=== PATIENT | female | born 1965 | race Caucasian/White ===

== ENCOUNTER 2020-11-20 20:30 | Inpatient (IN) ==
[2020-11-20] MEDS ORDERED: TERBUTALINE 1 MG/ML VIAL SQ ONE (21:27)
[2020-11-20] MEDS ORDERED: 0.9 % SODIUM CHLORIDE 1,000 ML IV ONE (21:27)
[2020-11-20] MEDS ORDERED: methylPREDNISolone SOD SUCC 125 MG/2 ML VIAL IV ONE (21:27)
[2020-11-20] MEDS ORDERED: ALBUTEROL SULFATE 200 PUFF INHALER INH ONE (21:27)
--- NOTE | 2020-11-20 21:36 | Emergency Department Note ---
Lower Extremity Injury HPI General Chief Complaint: Extremity Injury, Lower Stated Complaint: lt hip pain 2 days Time Seen by Provider: 11/20/20 20:56 Source: patient Mode of arrival: wheelchair Limitations: no limitations History of Present Illness HPI Narrative: Narrative: 54-year-old female comes in complaining of left hip pain after falling off a curb yesterday. She sort of tripped and fell. She has had a prior hip replacement at that side. She is able to walk but it does cause significant pain. She did not sleep well secondary to pain. She was having some trouble breathing last night and so she brought her roommates oxygen for a little bit. She does not normally use oxygen-here she is requiring 2 L to keep oxygen saturations above 90%. She denies fever and had a negative Covid test 1 week ago. She has been feeling rundown and more fatigue but denies bowel or bladder symptoms. She had some morphine leftover from prior surgery that she took but it did not seem to help much. She also took some gabapentin. She is quite somnolent here Related Data Home Medications Medication Instructions Recorded Confirmed gabapentin 600 mg PO PRN PRN 06/23/20 11/21/20 lorazepam 11/20/20 Allergies Allergy/AdvReac Type Severity Reaction Status Date / Time cephalexin [From Keflex] Allergy Verified 11/20/20 20:35 clindamycin Allergy Verified 11/20/20 20:35 Review of Systems ROS ROS Narrative: Narrative: All systems ED: reviewed and negative except as stated. PFSH Narrative Patient History Narrative: Narrative: Medical/Surgical/Family History All Active Problems (Updated 11/20/20 @ 21:37 by Erick Orozco MD) Fall (Acute) Hypoxia (Acute) Acute pain of left hip (Acute) Status post left hip replacement (Acute) COPD (chronic obstructive pulmonary disease) (Acute) No pertinent past surgical history (Acute) No pertinent past medical history (Acute) Acute flank pain (Acute) Foreign body in throat (Acute) Medical History (Updated 11/20/20 @ 21:37 by Erick Orozco MD) No pertinent past medical history (Acute) Schatzki's ring (Acute) Surgical History (Updated 11/20/20 @ 21:37 by Erick Orozco MD) Hip joint replacement status (Acute) History of esophagogastroduodenoscopy (EGD) (Acute) No pertinent past surgical history (Acute) Family History (Updated 08/23/20 @ 09:01 by Rashmi Patrick) Other No pertinent family history Social History Smoking Status: Current every day smoker Exam Narrative Narrative: Narrative: Some respiratory distress requiring oxygen. Normocephalic atraumatic. Conjunctive are clear sclerae white nonicteric. No nasal discharge or congestion. Oropharynx dry buccal mucosa. Neck supple.lymphadenopathy or thyromegaly. Heart is regular rate and rhythm no murmur appreciated. Lungs with few scattered rhonchi and scattered crackles. End expiratory wheezes noted. Left hip painful at the groin and buttock area. She is able to move it though. Both legs appear to be the same length and normal great toe raise bilaterally. Sensation is intact at the foot good color and tone to the leg. She is somnolent but arousable and can answer questions appropriate General Limitations: no limitations Course Vital Signs Vital signs: Vital Signs Temperature 100.6 F H 11/20/20 20:31 Pulse Rate 125 H 11/20/20 20:31 Respiratory Rate 20 11/20/20 20:31 Blood Pressure 124/74 11/20/20 20:31 Pulse Oximetry (%) 88 L 11/20/20 20:31 Temperature 100.6 F H 11/20/20 20:31 Pulse Rate 103 H 11/21/20 00:31 Respiratory Rate 12 11/21/20 00:31 Blood Pressure 117/72 11/21/20 00:31 Pulse Oximetry (%) 94 11/21/20 00:31 [facility] MDM Narrative Medical decision making narrative: Narrative: 2 issues-the first is she fell and injured her hip. I do not see an acute fracture on x-ray. The second issue is her breathing issue with hypoxia. She is febrile here and tachycardic. Suspect Covid as that is what is going around right now. Chest x-ray is consistent with that Order testing with laboratory. Start terbutaline and albuterol inhaler. Rapid Covid test. Start steroids for COPD and IV fluids Rapid Covid test was negative. Arterial blood gas showed pH is 7.42 PCO2 49 PO2 of 53 on 3 L. She will require admission because she is on oxygen now. We will go ahead and give her doxycycline for COPD exacerbation and order follow-up up cepheid COVID test in anticipation of admission Her white blood cell count was very high-23 with predominance of neutrophils which suggest bacterial infection. However procalcitonin was elevated but does not suggest bacterial infection. Lactic acid is normal as is D-dimer. So at this point it does not look like she is septic, but she could certainly have a Covid versus bacterial pneumonia plus COPD exacerbation. Additionally while her left leg is hurting her from the fall further imaging with CT or MRI might be warranted to sort out-but at this point it seems to be a secondary issue to her breathing. I discussed these things with Dr. Jane our hospitalist. He agreed to accept the patient for further care and evaluation in the hospital. I went in to briefly reevaluate the patient and noted that she is sleeping-but it is midnight. The head of the bed was up and she was snoring, it sounded like there are some gurgling and secretions in the back of her throat but her oxygen levels were good and she was moving air well on nasal cannula oxygen. Nursing staff ended up doing fem cath. They noted dark-colored urine could be consistent with dehydration versus UTI. This is sent for microscopic. She already received doxycycline which should cover UTI as well. Added UDS. She finished her first liter of fluid and we wrote for another liter of IV fluid. PCR testing for Covid was negative. Hospitalist ordered further testing. Nursing staff reports that after suctioning the patient was feeling much better; breathing better Lab Data Lab results reviewed: Yes I reviewed the patient's lab results. Result diagrams: 11/20/20 21:47 11/20/20 21:47 Labs: Lab Results 11/20/20 11/20/20 11/20/20 Range/Units 21:47 21:47 21:47 WBC 23.3 H (4.5-11.0) K/mcL RBC 4.51 (4.00-5.20) M/mcL Hgb 13.9 (12.0-15.0) g/dL Hct 41.1 (36.0-48.0) % MCV 91.1 (80.0-100.0) fL MCH 30.8 (26.0-34.0) pg MCHC 33.8 (31.0-36.0) g/dL RDW 13.9 (11.5-14.5) % Plt Count 188 (140-440) K/mcL MPV 8.9 (7.4-10.4) fL Neut % (Auto) 87.1 H (38.0-78.0) % Lymph % (Auto) 8.8 L (15.0-49.0) % Mesa % (Auto) 3.6 (1.0-12.0) % Eos % (Auto) 0.1 (0.0-7.0) % Baso % (Auto) 0.4 (0.0-2.0) % Lymph # (Auto) 2.04 (1.50-4.80) K/mcL Mesa # (Auto) 0.83 (0.10-0.90) K/mcL Eos # (Auto) 0.03 (0.00-0.70) K/mcL Baso # (Auto) 0.09 (0.00-0.20) K/mcL Absolute Neutrophils 20.26 H (1.80-8.00) K/mcL PT (11.9-14.5) sec INR (0.9-1.1) D-Dimer 0.43 (0.27-0.50) ug/mL VBG Lactic Acid (0.5-2.0) mmol/L Sodium 130 L (133-145) mmol/L Potassium 3.9 (3.3-5.1) mmol/L Chloride 92 L (96-108) mmol/L Carbon Dioxide 28 (22-30) mmol/L Anion Gap 10.0 (8.0-16.0) BUN 11 (6-20) mg/dL Creatinine 0.7 (0.6-1.1) mg/dL GFR Calculation 99 Glucose 151 H (70-105) mg/dL Calcium 9.2 (8.6-10.4) mg/dL Phosphorus (2.5-4.5) mg/dL Magnesium 2.2 (1.6-2.5) mg/dL Total Bilirubin 0.5 (0.1-1.0) mg/dL AST 19 (<32) U/L ALT 14 (<40) U/L Alkaline Phosphatase 124 H (39-117) U/L Troponin T (<0.03) ng/mL C-Reactive Protein (0.03-0.80) mg/dL NT-Pro-B Natriuret Pep 169.7 H (<125.0) pg/mL Total Protein 7.4 (5.9-8.4) gm/dL Albumin 3.7 (3.2-5.2) gm/dL Globulin 3.7 (2.2-3.7) gm/dL Albumin/Globulin Ratio 1.0 (1.0-2.3) Lipase 13 (7-60) U/L 25-OH Vitamin D Total (>30.00) ng/mL Procalcitonin (<0.10) ng/mL Urine Color Urine Appearance (Clear) Urine pH (5.0-9.0) Ur Specific Stephenson (1.000-1.035) Urine Protein (Negative) mg/dL Urine Glucose (UA) (Negative) mg/dL Urine Ketones (Negative) mg/dL Urine Occult Blood (Negative) mg/dL Urine Nitrate (Negative) Urine Bilirubin (Negative) mg/dL Urine Urobilinogen mg/dL Ur Leukocyte Esterase (Negative) /ug Urine RBC (0-3) /hpf Urine WBC (0-4) /hpf Ur Squamous Epith Cells (0-4) /hpf Urine Bacteria (0) /hpf Urine Mucus (None) /hpf Ur Culture Indicated? Urine Opiates Screen Ur Oxycodone Screen Urine Methadone Screen Ur Barbiturates Screen Ur Phencyclidine Scrn Ur Amphetamines Screen U Benzodiazepines Scrn Urine Cocaine Screen U Marijuana (THC) Screen 11/20/20 11/20/20 11/20/20 Range/Units 21:47 21:47 21:47 WBC (4.5-11.0) K/mcL RBC (4.00-5.20) M/mcL Hgb (12.0-15.0) g/dL Hct (36.0-48.0) % MCV (80.0-100.0) fL MCH (26.0-34.0) pg MCHC (31.0-36.0) g/dL RDW (11.5-14.5) % Plt Count (140-440) K/mcL MPV (7.4-10.4) fL Neut % (Auto) (38.0-78.0) % Lymph % (Auto) (15.0-49.0) % Mesa % (Auto) (1.0-12.0) % Eos % (Auto) (0.0-7.0) % Baso % (Auto) (0.0-2.0) % Lymph # (Auto) (1.50-4.80) K/mcL Mesa # (Auto) (0.10-0.90) K/mcL Eos # (Auto) (0.00-0.70) K/mcL Baso # (Auto) (0.00-0.20) K/mcL Absolute Neutrophils (1.80-8.00) K/mcL PT (11.9-14.5) sec INR (0.9-1.1) D-Dimer (0.27-0.50) ug/mL VBG Lactic Acid 1.4 (0.5-2.0) mmol/L Sodium (133-145) mmol/L Potassium (3.3-5.1) mmol/L Chloride (96-108) mmol/L Carbon Dioxide (22-30) mmol/L Anion Gap (8.0-16.0) BUN (6-20) mg/dL Creatinine (0.6-1.1) mg/dL GFR Calculation Glucose (70-105) mg/dL Calcium (8.6-10.4) mg/dL Phosphorus (2.5-4.5) mg/dL Magnesium (1.6-2.5) mg/dL Total Bilirubin (0.1-1.0) mg/dL AST (<32) U/L ALT (<40) U/L Alkaline Phosphatase (39-117) U/L Troponin T < 0.01 (<0.03) ng/mL C-Reactive Protein (0.03-0.80) mg/dL NT-Pro-B Natriuret Pep (<125.0) pg/mL Total Protein (5.9-8.4) gm/dL Albumin (3.2-5.2) gm/dL Globulin (2.2-3.7) gm/dL Albumin/Globulin Ratio (1.0-2.3) Lipase (7-60) U/L 25-OH Vitamin D Total (>30.00) ng/mL Procalcitonin 0.22 H (<0.10) ng/mL Urine Color Urine Appearance (Clear) Urine pH (5.0-9.0) Ur Specific Stephenson (1.000-1.035) Urine Protein (Negative) mg/dL Urine Glucose (UA) (Negative) mg/dL Urine Ketones (Negative) mg/dL Urine Occult Blood (Negative) mg/dL Urine Nitrate (Negative) Urine Bilirubin (Negative) mg/dL Urine Urobilinogen mg/dL Ur Leukocyte Esterase (Negative) /ug Urine RBC (0-3) /hpf Urine WBC (0-4) /hpf Ur Squamous Epith Cells (0-4) /hpf Urine Bacteria (0) /hpf Urine Mucus (None) /hpf Ur Culture Indicated? Urine Opiates Screen Ur Oxycodone Screen Urine Methadone Screen Ur Barbiturates Screen Ur Phencyclidine Scrn Ur Amphetamines Screen U Benzodiazepines Scrn Urine Cocaine Screen U Marijuana (THC) Screen 11/20/20 11/21/20 11/21/20 Range/Units 23:34 00:02 00:35 WBC (4.5-11.0) K/mcL RBC (4.00-5.20) M/mcL Hgb (12.0-15.0) g/dL Hct (36.0-48.0) % MCV (80.0-100.0) fL MCH (26.0-34.0) pg MCHC (31.0-36.0) g/dL RDW (11.5-14.5) % Plt Count (140-440) K/mcL MPV (7.4-10.4) fL Neut % (Auto) (38.0-78.0) % Lymph % (Auto) (15.0-49.0) % Mesa % (Auto) (1.0-12.0) % Eos % (Auto) (0.0-7.0) % Baso % (Auto) (0.0-2.0) % Lymph # (Auto) (1.50-4.80) K/mcL Mes[place] # (Auto) (0.10-0.90) K/mcL Eos # (Auto) (0.00-0.70) K/mcL Baso # (Auto) (0.00-0.20) K/mcL Absolute Neutrophils (1.80-8.00) K/mcL PT (11.9-14.5) sec INR (0.9-1.1) D-Dimer (0.27-0.50) ug/mL VBG Lactic Acid 0.8 (0.5-2.0) mmol/L Sodium (133-145) mmol/L Potassium (3.3-5.1) mmol/L Chloride (96-108) mmol/L Carbon Dioxide (22-30) mmol/L Anion Gap (8.0-16.0) BUN (6-20) mg/dL Creatinine (0.6-1.1) mg/dL GFR Calculation Glucose (70-105) mg/dL Calcium (8.6-10.4) mg/dL Phosphorus (2.5-4.5) mg/dL Magnesium (1.6-2.5) mg/dL Total Bilirubin (0.1-1.0) mg/dL AST (<32) U/L ALT (<40) U/L Alkaline Phosphatase (39-117) U/L Troponin T (<0.03) ng/mL C-Reactive Protein (0.03-0.80) mg/dL NT-Pro-B Natriuret Pep (<125.0) pg/mL Total Protein (5.9-8.4) gm/dL Albumin (3.2-5.2) gm/dL Globulin (2.2-3.7) gm/dL Albumin/Globulin Ratio (1.0-2.3) Lipase (7-60) U/L 25-OH Vitamin D Total (>30.00) ng/mL Procalcitonin (<0.10) ng/mL Urine Color Yellow Urine Appearance Cloudy A (Clear) Urine pH 5.0 (5.0-9.0) Ur Specific Stephenson 1.018 (1.000-1.035) Urine Protein 30 A (Negative) mg/dL Urine Glucose (UA) Negative (Negative) mg/dL Urine Ketones Negative (Negative) mg/dL Urine Occult Blood 0.20 (Negative) mg/dL Urine Nitrate Pos A (Negative) Urine Bilirubin Negative (Negative) mg/dL Urine Urobilinogen Negative mg/dL Ur Leukocyte Esterase 250 A (Negative) /ug Urine RBC 2 (0-3) /hpf Urine WBC > 182 H (0-4) /hpf Ur Squamous Epith Cells 1 (0-4) /hpf Urine Bacteria Mod A (0) /hpf Urine Mucus Many A (None) /hpf Ur Culture Indicated? yes Urine Opiates Screen Suspect positive A Ur Oxycodone Screen None detected Urine Methadone Screen None detected Ur Barbiturates Screen None detected Ur Phencyclidine Scrn None detected Ur Amphetamines Screen Suspect positive A U Benzodiazepines Scrn Suspect positive A Urine Cocaine Screen None detected U Marijuana (THC) Screen Suspect positive A 11/21/20 11/21/20 11/21/20 Range/Units 00:36 00:36 00:37 WBC (4.5-11.0) K/mcL RBC (4.00-5.20) M/mcL Hgb (12.0-15.0) g/dL Hct (36.0-48.0) % MCV (80.0-100.0) fL MCH (26.0-34.0) pg MCHC (31.0-36.0) g/dL RDW (11.5-14.5) % Plt Count (140-440) K/mcL MPV (7.4-10.4) fL Neut % (Auto) (38.0-78.0) % Lymph % (Auto) (15.0-49.0) % Mesa % (Auto) (1.0-12.0) % Eos % (Auto) (0.0-7.0) % Baso % (Auto) (0.0-2.0) % Lymph # (Auto) (1.50-4.80) K/mcL [place] # (Auto) (0.10-0.90) K/mcL Eos # (Auto) (0.00-0.70) K/mcL Baso # (Auto) (0.00-0.20) K/mcL Absolute Neutrophils (1.80-8.00) K/mcL PT 14.3 (11.9-14.5) sec INR 1.1 (0.9-1.1) D-Dimer (0.27-0.50) ug/mL VBG Lactic Acid (0.5-2.0) mmol/L Sodium (133-145) mmol/L Potassium (3.3-5.1) mmol/L Chloride (96-108) mmol/L Carbon Dioxide (22-30) mmol/L Anion Gap (8.0-16.0) BUN (6-20) mg/dL Creatinine (0.6-1.1) mg/dL GFR Calculation Glucose (70-105) mg/dL Calcium (8.6-10.4) mg/dL Phosphorus 2.6 (2.5-4.5) mg/dL Magnesium 2.0 (1.6-2.5) mg/dL Total Bilirubin (0.1-1.0) mg/dL AST (<32) U/L ALT (<40) U/L Alkaline Phosphatase (39-117) U/L Troponin T < 0.01 (<0.03) ng/mL C-Reactive Protein 11.60 H (0.03-0.80) mg/dL NT-Pro-B Natriuret Pep 197.2 H (<125.0) pg/mL Total Protein (5.9-8.4) gm/dL Albumin (3.2-5.2) gm/dL Globulin (2.2-3.7) gm/dL Albumin/Globulin Ratio (1.0-2.3) Lipase (7-60) U/L 25-OH Vitamin D Total (>30.00) ng/mL Procalcitonin (<0.10) ng/mL Urine Color Urine Appearance (Clear) Urine pH (5.0-9.0) Ur Specific Stephenson (1.000-1.035) Urine Protein (Negative) mg/dL Urine Glucose (UA) (Negative) mg/dL Urine Ketones (Negative) mg/dL Urine Occult Blood (Negative) mg/dL Urine Nitrate (Negative) Urine Bilirubin (Negative) mg/dL Urine Urobilinogen mg/dL Ur Leukocyte Esterase (Negative) /ug Urine RBC (0-3) /hpf Urine WBC (0-4) /hpf Ur Squamous Epith Cells (0-4) /hpf Urine Bacteria (0) /hpf Urine Mucus (None) /hpf Ur Culture Indicated? Urine Opiates Screen Ur Oxycodone Screen Urine Methadone Screen Ur Barbiturates Screen Ur Phencyclidine Scrn Ur Amphetamines Screen U Benzodiazepines Scrn Urine Cocaine Screen U Marijuana (THC) Screen 11/21/20 Range/Units 00:37 WBC (4.5-11.0) K/mcL RBC (4.00-5.20) M/mcL Hgb (12.0-15.0) g/dL Hct (36.0-48.0) % MCV (80.0-100.0) fL MCH (26.0-34.0) pg MCHC (31.0-36.0) g/dL RDW (11.5-14.5) % Plt Count (140-440) K/mcL MPV (7.4-10.4) fL Neut % (Auto) (38.0-78.0) % Lymph % (Auto) (15.0-49.0) % [place] % (Auto) (1.0-12.0) % Eos % (Auto) (0.0-7.0) % Baso % (Auto) (0.0-2.0) % Lymph # (Auto) (1.50-4.80) K/mcL [place] # (Auto) (0.10-0.90) K/mcL Eos # (Auto) (0.00-0.70) K/mcL Baso # (Auto) (0.00-0.20) K/mcL Absolute Neutrophils (1.80-8.00) K/mcL PT (11.9-14.5) sec INR (0.9-1.1) D-Dimer (0.27-0.50) ug/mL VBG Lactic Acid (0.5-2.0) mmol/L Sodium (133-145) mmol/L Potassium (3.3-5.1) mmol/L Chloride (96-108) mmol/L Carbon Dioxide (22-30) mmol/L Anion Gap (8.0-16.0) BUN (6-20) mg/dL Creatinine (0.6-1.1) mg/dL GFR Calculation Glucose (70-105) mg/dL Calcium (8.6-10.4) mg/dL Phosphorus (2.5-4.5) mg/dL Magnesium (1.6-2.5) mg/dL Total Bilirubin (0.1-1.0) mg/dL AST (<32) U/L ALT (<40) U/L Alkaline Phosphatase (39-117) U/L Troponin T (<0.03) ng/mL C-Reactive Protein (0.03-0.80) mg/dL NT-Pro-B Natriuret Pep (<125.0) pg/mL Total Protein (5.9-8.4) gm/dL Albumin (3.2-5.2) gm/dL Globulin (2.2-3.7) gm/dL Albumin/Globulin Ratio (1.0-2.3) Lipase (7-60) U/L 25-OH Vitamin D Total 12.91 L (>30.00) ng/mL Procalcitonin (<0.10) ng/mL Urine Color Urine Appearance (Clear) Urine pH (5.0-9.0) Ur Specific Stephenson (1.000-1.035) Urine Protein (Negative) mg/dL Urine Glucose (UA) (Negative) mg/dL Urine Ketones (Negative) mg/dL Urine Occult Blood (Negative) mg/dL Urine Nitrate (Negative) Urine Bilirubin (Negative) mg/dL Urine Urobilinogen mg/dL Ur Leukocyte Esterase (Negative) /ug Urine RBC (0-3) /hpf Urine WBC (0-4) /hpf Ur Squamous Epith Cells (0-4) /hpf Urine Bacteria (0) /hpf Urine Mucus (None) /hpf Ur Culture Indicated? Urine Opiates Screen Ur Oxycodone Screen Urine Methadone Screen Ur Barbiturates Screen Ur Phencyclidine Scrn Ur Amphetamines Screen U Benzodiazepines Scrn Urine Cocaine Screen U Marijuana (THC) Screen Radiology Data Radiology results reviewed: Yes I reviewed the patient's radiology results. Radiology results narrative: Left hip films and pelvis showed no acute findings Chest x-ray shows possible bilateral patchy infiltrate consistent with Covid or similar viral Discharge Plan Patient/Caregiver Discharge Instructions Pt seen by UTILIZATION MANAGEMENT MANAGER/PA only: No Clinical Impression: Hypoxia, Acute pain of left hip, Status post left hip replacement COPD (chronic obstructive pulmonary disease) Qualifiers: COPD type: unspecified COPD Qualified Code(s): J44.9 - Chronic obstructive pulmonary disease, unspecified Fall Qualifiers: Encounter type: initial encounter Qualified Code(s): W19.XXXA - Unspecified fall, initial encounter Patient Disposition: Xfer As Inpt ([facility]) Condition: Fair Discharge Date/Time: 11/21/20 01:45 [place]charge Comment: [place] [id number]
[2020-11-20] MEDS ORDERED: DOXYCYCLINE HYCLATE 100 MG TABLET.ORL PO ONE (22:30)
[2020-11-20 22:40] LABS: Basophils # (Auto) 0.09 K/mcL (0.00-0.20); Basophils % (Auto) 0.4 % (0.0-2.0); Eosinophils # (Auto) 0.03 K/mcL (0.00-0.70); Eosinophils % (Auto) 0.1 % (0.0-7.0); Hematocrit 41.1 % (36.0-48.0); Hemoglobin 13.9 g/dL (12.0-15.0); Lymphocytes # (Auto) 2.04 K/mcL (1.50-4.80); Lymphocytes % (Auto) 8.8 % (15.0-49.0); Mean Cell Volume 91.1 fL (80.0-100.0); Mean Corpuscular HGB Conc 33.8 g/dL (31.0-36.0); Mean Platelet Volume 8.9 fL (7.4-10.4); Monocytes # (Auto) 0.83 K/mcL (0.10-0.90); Monocytes % (Auto) 3.6 % (1.0-12.0); Neutrophils % (Auto) 87.1 % (38.0-78.0); Platelet Count 188 K/mcL (140-440); RBC 4.51 M/mcL (4.00-5.20); Red Cell Distribution Width 13.9 % (11.5-14.5); WBC 23.3 K/mcL (4.5-11.0)
[2020-11-20 23:06] LABS: proBNP 169.7 pg/mL (<125.0)
[2020-11-20 23:08] LABS: ALT/SGPT 14 U/L (<40); AST/SGOT 19 U/L (<32); Albumin 3.7 gm/dL (3.2-5.2); Alkaline Phosphatase 124 U/L (39-117); Bilirubin,Total 0.5 mg/dL (0.1-1.0); Blood Urea Nitrogen 11 mg/dL (6-20); Calcium 9.2 mg/dL (8.6-10.4); Carbon Dioxide 28 mmol/L (22-30); Chloride 92 mmol/L (96-108); Globulin 3.7 gm/dL (2.2-3.7); Glomerular Filtration Rate 99; Glucose 151 mg/dL (70-105)
[2020-11-21] MEDS ORDERED: 0.9 % SODIUM CHLORIDE 1,000 ML IV ONE (00:11)
[2020-11-21] MEDS ORDERED: ONDANSETRON 4 MG/2 ML VIAL IV PRN (00:13)
[2020-11-21] MEDS ORDERED: morphine 2 MG/ML VIAL IV PRN (00:13)
[2020-11-21] MEDS ORDERED: HYDROcodone/APAP 5/325MG TABLET PO PRN (00:13)
[2020-11-21] MEDS ORDERED: NALOXONE HCL 0.4 MG/ML VIAL IV PRN (00:13)
[2020-11-21] MEDS ORDERED: ACETAMINOPHEN 325 MG TABLET PO PRN (00:13)
[2020-11-21] MEDS ORDERED: LACTULOSE 20 GM/30 ML ORAL.SOL PO PRN (00:13)
[2020-11-21] MEDS ORDERED: 0.9 % SODIUM CHLORIDE 1,000 ML IV SCH (00:15)
[2020-11-21] MEDS ORDERED: IPRATROPIUM/ALBUTEROL 3 ML AMPUL.NEB NEB PRN (00:22)
[2020-11-21] MEDS ORDERED: NALOXONE HCL 0.4 MG/ML VIAL IV ONE (00:22)
[2020-11-21] MEDS ORDERED: ALBUTEROL SULFATE 200 PUFF INHALER INH PRN (00:22)
[2020-11-21 00:26] LABS: Appearance,Urine CLOUDY (Clear); Bacteria,Urine MOD /hpf (0); Bilirubin,Urine Negative (Negative); Color,Urine YELLOW; Culture Indicated,Urine yes; Glucose,Urine (UA) Negative (Negative); Ketones,Urine Negative (Negative); Leukocyte Esterase,Urine 250 /ug (Negative); Mucus,Urine MANY /hpf; Nitrate,Urine POS (Negative); Protein,Urine 30 mg/dL (Negative); Specific Gravity,Urine 1.018 (1.000-1.035); Urine RBC 2 /hpf (0-3); Urine Squamous Epithelial Cell 1 /hpf (0-4); Urine WBC > 182 /hpf (0-4); Urobilinogen,Urine Negative
[2020-11-21] MEDS ORDERED: NON FORMULARY MEDICATION 1 DOSE MISCELL (Gabapentin 600 MG) PO PRN (00:28)
[2020-11-21] MEDS ORDERED: cefTRIAXone 1 GM in DEXTROSE 5% IN WATER 50 ML IV SCH (00:30)
[2020-11-21] MEDS ORDERED: LEVOFLOXACIN 750 MG/150 ML BAG IV SCH (00:30)
[2020-11-21] MEDS ORDERED: AZITHROMYCIN 500 MG in DEXTROSE 5% IN WATER 250 ML IV SCH (00:30)
--- NOTE | 2020-11-21 00:36 | Internal Med History&Physical ---
HPI History of Present Illness Patient information: Note initiated : 11/21/20 at 12:35 am Service Date, if different from initiated Date: [] Patient: Lilo Arreola a 54 y/o F admitted on for lt hip pain 2 days. Chief Complaint: [] History of present illness: Ms. Con Durbin is a 54 year old F with a past medical history of COPD and tobacco dependence who presented to the ER due to left hip pain. Patient is a poor historian. Patient had a mechanical fall yesterday. After that, she developed left hip pain. She underwent a procedure on the same hip. She also complains of shortness of breath, fatigue and does not feel well. in the ER, chest x-ray showed a bilateral infiltrate. Left hip x-ray no fracture. She needs oxygen to maintain oxygen saturation 90% in the ER. She had a coronavirus test 1 week ago which was negative. Review of Systems Review of systems: Positive for left hip pain and shortness of breath. All other systems were reviewed and are negative. PFSH PFSH All Active Problems Fall (Acute) Hypoxia (Acute) Acute pain of left hip (Acute) Status post left hip replacement (Acute) COPD (chronic obstructive pulmonary disease) (Acute) No pertinent past surgical history (Acute) No pertinent past medical history (Acute) Acute flank pain (Acute) Foreign body in throat (Acute) Medical History No pertinent past medical history (Acute) Schatzki's ring (Acute) Surgical History Hip joint replacement status (Acute) History of esophagogastroduodenoscopy (EGD) (Acute) No pertinent past surgical history (Acute) Family History Other No pertinent family history Social History smoking status: Current every day smoker MEDS/ALLERGIES Home Medications and Allergies Home Medications Medication Instructions Recorded Confirmed Type gabapentin 600 mg PO PRN PRN 06/23/20 11/21/20 History lorazepam 11/20/20 History Allergies Allergy/AdvReac Type Severity Reaction Status Date / Time cephalexin [From Keflex] Allergy Verified 11/20/20 20:35 clindamycin Allergy Verified 11/20/20 20:35 EXAM Constitutional Vitals: Temp Pulse Resp BP Pulse Ox 100.6 F H 105 H 10 L 108/75 94 11/20/20 20:31 11/21/20 00:06 11/21/20 00:06 11/21/20 00:01 11/21/20 00:06 Additional findings Additional findings: General - No acute distress Eyes - PERRLA, EOM intact ENT no rhinorrhea, no noticeable or palpable swelling Neck supple, no JVD, no thyromegaly Respiratory: Lungs -bibasilar crackles, mild wheezing. Cardiovascular - RRR no m/r/g, GI - Normal bowel sounds, no distended, soft. Extremeties - No edema, cyanosis or clubbing Hemo/lymphatic/immune no lymphadenopathy Neurological Alert and oriented x 3, no focal neurological deficits. Psychiatry flat affect DATA Data Completed and Pending Labs: Labs from last 24 hours 11/21/20 11/20/20 11/20/20 00:02 23:34 21:47 WBC RBC Hgb Hct MCV MCH MCHC RDW Plt Count MPV Neut % (Auto) Lymph % (Auto) [place] % (Auto) Eos % (Auto) Baso % (Auto) Lymph # (Auto) [place] # (Auto) Eos # (Auto) Baso # (Auto) Absolute Neutrophils D-Dimer VBG Lactic Acid Sodium Potassium Chloride Carbon Dioxide Anion Gap BUN Creatinine GFR Calculation Glucose Calcium Magnesium Total Bilirubin AST ALT Alkaline Phosphatase Troponin T NT-Pro-B Natriuret Pep Total Protein Albumin Globulin Albumin/Globulin Ratio Lipase Procalcitonin 0.22 H Urine Color Yellow Urine Appearance Cloudy A Urine pH 5.0 Ur Specific [place] 1.018 Urine Protein 30 A Urine Glucose (UA) Negative Urine Ketones Negative Urine Occult Blood 0.20 Urine Nitrate Pos A Urine Bilirubin Negative Urine Urobilinogen Negative Ur Leukocyte Esterase 250 A Urine RBC 2 Urine WBC > 182 H Ur Squamous Epith Cells 1 Urine Bacteria Mod A Urine Mucus Many A Ur Culture Indicated? yes Urine Opiates Screen Pending Ur Opiates Confirm Pending Ur Oxycodone Screen Pending Urine Methadone Screen Pending Ur Methadone Confirm Pending Ur Barbiturates Screen Pending Ur Barbiturate Confirm Pending Ur Phencyclidine Scrn Pending Urine PCP Confirm Pending Ur Amphetamines Screen Pending U Amphetamines Confirm Pending U Benzodiazepines Scrn Pending U Benzodiazepine Confm Pending Urine Cocaine Screen Pending Urine Cocaine Confirm Pending U Cannabinoids Confirm Pending U Marijuana (THC) Screen Pending 11/20/20 11/20/20 11/20/20 21:47 21:47 21:47 WBC RBC Hgb Hct MCV MCH MCHC RDW Plt Count MPV Neut % (Auto) Lymph % (Auto) [place] % (Auto) Eos % (Auto) Baso % (Auto) Lymph # (Auto) [place] # (Auto) Eos # (Auto) Baso # (Auto) Absolute Neutrophils D-Dimer VBG Lactic Acid 1.4 Sodium 130 L Potassium 3.9 Chloride 92 L Carbon Dioxide 28 Anion Gap 10.0 BUN 11 Creatinine 0.7 GFR Calculation 99 Glucose 151 H Calcium 9.2 Magnesium 2.2 Total Bilirubin 0.5 AST 19 ALT 14 Alkaline Phosphatase 124 H Troponin T < 0.01 NT-Pro-B Natriuret Pep 169.7 H Total Protein 7.4 Albumin 3.7 Globulin 3.7 Albumin/Globulin Ratio 1.0 Lipase 13 Procalcitonin Urine Color Urine Appearance Urine pH Ur Specific [place] Urine Protein Urine Glucose (UA) Urine Ketones Urine Occult Blood Urine Nitrate Urine Bilirubin Urine Urobilinogen Ur Leukocyte Esterase Urine RBC Urine WBC Ur Squamous Epith Cells Urine Bacteria Urine Mucus Ur Culture Indicated? Urine Opiates Screen Ur Opiates Confirm Ur Oxycodone Screen Urine Methadone Screen Ur Methadone Confirm Ur Barbiturates Screen Ur Barbiturate Confirm Ur Phencyclidine Scrn Urine PCP Confirm Ur Amphetamines Screen U Amphetamines Confirm U Benzodiazepines Scrn U Benzodiazepine Confm Urine Cocaine Screen Urine Cocaine Confirm U Cannabinoids Confirm U Marijuana (THC) Screen 11/20/20 11/20/20 21:47 21:47 WBC 23.3 H RBC 4.51 Hgb 13.9 Hct 41.1 MCV 91.1 MCH 30.8 MCHC 33.8 RDW 13.9 Plt Count 188 MPV 8.9 Neut % (Auto) 87.1 H Lymph % (Auto) 8.8 L [place] % (Auto) 3.6 Eos % (Auto) 0.1 Baso % (Auto) 0.4 Lymph # (Auto) 2.04 [place] # (Auto) 0.83 Eos # (Auto) 0.03 Baso # (Auto) 0.09 Absolute Neutrophils 20.26 H D-Dimer 0.43 VBG Lactic Acid Sodium Potassium Chloride Carbon Dioxide Anion Gap BUN Creatinine GFR Calculation Glucose Calcium Magnesium Total Bilirubin AST ALT Alkaline Phosphatase Troponin T NT-Pro-B Natriuret Pep Total Protein Albumin Globulin Albumin/Globulin Ratio Lipase Procalcitonin Urine Color Urine Appearance Urine pH Ur Specific [place] Urine Protein Urine Glucose (UA) Urine Ketones Urine Occult Blood Urine Nitrate Urine Bilirubin Urine Urobilinogen Ur Leukocyte Esterase Urine RBC Urine WBC Ur Squamous Epith Cells Urine Bacteria Urine Mucus Ur Culture Indicated? Urine Opiates Screen Ur Opiates Confirm Ur Oxycodone Screen Urine Methadone Screen Ur Methadone Confirm Ur Barbiturates Screen Ur Barbiturate Confirm Ur Phencyclidine Scrn Urine PCP Confirm Ur Amphetamines Screen U Amphetamines Confirm U Benzodiazepines Scrn U Benzodiazepine Confm Urine Cocaine Screen Urine Cocaine Confirm U Cannabinoids Confirm U Marijuana (THC) Screen A/P Narrative A/P Narrative: 1. AMS, could be due to narcotics, metabolic process, infection, trauma Naloxone CT of head Blood culture 2. Sepsis 2nd pneumonia Cannot monitor Antibiotics Levophed as needed 3. Acute hypoxic respiratory failure Pulse ox Oxygen therapy to maintain oxygen saturation 92% BiPAP as needed 4. COPD exacerbation 5. Pneumonia, CAP, Covid 19 Sputum culture Respiratory panel MRSA screen Steroid Inhalers Levaquin (allergic to Keflex) 6. Mechanical fall at ground level 7. Left hip pain, s/p hip replacement CT of left hip Pain management 8. Hyponatremia IV normal saline. Repeat the sodium level 9. Tobacco dependence Smoking cessation counseling Pain tearfulness 10. DVT prophylaxis: Lovenox Time Spent With Patient Time: Total time spent is greater than 50% in coordination of care (as documented) at patient's floor/unit and/or counseling patient:
[2020-11-21] MEDS ORDERED: 0.9 % SODIUM CHLORIDE 250 ML IV SCH (00:45)
[2020-11-21] MEDS ORDERED: NOREPINEPHRINE BITARTRATE 8 MG in 0.9 % SODIUM CHLORIDE 242 ML IV SCH (00:45)
[2020-11-21 00:48] LABS: Amphetamine Screen,Urine Suspect positive; Barbiturate Screen,Urine None detected; Benzodiazepines Screen,Urine Suspect positive; Cannabinoid Screen,Urine Suspect Positive; Cocaine Screen,Urine None detected; Opiate Screen,Urine Suspect Positive; Oxycodone, Urine Screen None detected; Phencyclidine Screen,Urine None detected
[2020-11-21] MEDS ORDERED: NOREPINEPHRINE BITARTRATE 8 MG in 0.9 % SODIUM CHLORIDE 242 ML IV PRN (01:05)
[2020-11-21 01:43] LABS: INR 1.1 (0.9-1.1); Prothrombin Time 14.3 sec (11.9-14.5)
[2020-11-21 01:45] LABS: proBNP 197.2 pg/mL (<125.0)
[2020-11-21 01:48] LABS: Phosphorous 2.6 mg/dL (2.5-4.5)
[2020-11-21] MEDS ORDERED: LEVALBUTEROL 0.63 MG/3 ML AMPUL.NEB NEB SCH (03:00)
--- NOTE | 2020-11-21 04:29 | XRay Report ---
CLINICAL INFORMATION: shortness of breath COMPARISON: 09/25/2012 FINDINGS: Heart size, mediastinum and pulmonary vessels are normal. Small patchy bibasilar infiltrates have developed. No effusions IMPRESSION: Small patchy bibasilar infiltrates - worse on the right. Suspect pneumonia or aspiration Interpreted and Authenticated by: Adolfo Coats 11/21/20
--- NOTE | 2020-11-21 04:43 | XRay Report ---
CLINICAL INFORMATION: fall COMPARISON: Preoperative plain film 03/11/2012 FINDINGS: Left total hip prostheses is anatomically aligned without loosening or infection. There is no evidence of fracture. Moderate downward tilt of the right hemipelvis has increased considerably. There is moderate right SI degeneration. The left SI and right hip joint are normal. Moderate dextroscoliosis has increased. Also, there is now severe L3-4 moderate L4-5 and severe L5-S1 degenerative disc disease increasing considerably over the past eight years IMPRESSION: No fracture or posttraumatic change. Moderate worsening in the lumbar dextroscoliotic curve with acceleration lower lumbar degeneration since plain films eight years ago. Downward tilt of the right hemipelvis has progressed. Interpreted and Authenticated by: Adolfo Coats 11/21/20
--- NOTE | 2020-11-21 04:51 | Cat Scan Report ---
CLINICAL INFORMATION: Acute mental status change COMPARISON: None. TECHNIQUE: 2.5 mm helical slices were obtained in the skull base to vertex. Following reconstruction, axial reformatted images were reviewed at bone and parenchymal windows. The exam was performed using radiation dose optimization techniques including, but not limited to, automated exposure control, adjustment of the mA and/or kV according to patient size and use of iterative reconstruction technique. FINDINGS: The ventricles, sulci, fissures, and cisterns are normal in size and configuration. No extra-axial fluid collections are identified. The cerebrum, brainstem and cerebellum are unremarkable. There is no evidence of hemorrhage, mass effect, or edema. Bone windows show no osseous abnormality. IMPRESSION: Normal head CT without contrast. Interpreted and Authenticated by: Adolfo Coats 11/21/20
--- NOTE | 2020-11-21 05:54 | Cat Scan Report ---
CLINICAL INFORMATION: Trauma now with left hip pain. History of hip replacement one year prior COMPARISON: Preoperative abdomen and pelvic CT 01/03/2019 TECHNIQUE: .625mm helical slices were obtained from the mid L4 through the subtrochanteric regions. Following reconstruction, 2.5 mm sagittal, coronal and axial reformations were processed. The exam was reviewed in bone and soft tissue windows. The exam was performed using radiation dose optimization techniques including, but not limited to, automated exposure control, adjustment of mA and/or kV according to patient size and use of iterative reconstruction technique. FINDINGS: Left total hip prostheses is anatomically aligned without loosening or infection. There is no fracture or posttraumatic change. Both SI and right hip are normal in width and alignment without arthritic change. Soft tissues show the visualized small and large bowel and urinary bladder to be normal. Hysterectomy changes appreciated. There is no free air, free fluid or adenopathy. At L4-5 and L5-S1, moderate broad disc protrusions and facet arthropathy result in mild central canal and bilateral IV foraminal narrowing at each level. There is mild impingement of the exiting right L5 nerve root. IMPRESSION: 1. No fracture or post traumatic change. 2. Left total hip prostheses is anatomically aligned without loosening or infection. 3. L4-5: Moderate broad disc protrusion and facet arthropathy resulting in mild bilateral IV foraminal and central canal narrowing. There is impingement of the exiting right L5 nerve root Interpreted and Authenticated by: Adolfo Coats 11/21/20
[2020-11-21] MEDS ORDERED: methylPREDNISolone SOD SUCC 125 MG/2 ML VIAL IV SCH (06:00)
[2020-11-21] MEDS ORDERED: 0.9 % SODIUM CHLORIDE 10 ML SYRINGE IV SCH (06:00)
[2020-11-21] MEDS ORDERED: PANTOPRAZOLE 40 MG TABLET PO SCH (07:30)
[2020-11-21] MEDS ORDERED: DOCUSATE SODIUM 100 MG CAPSULE PO SCH (09:00)
[2020-11-21] MEDS ORDERED: ENOXAPARIN 40 MG/0.4 ML SYRINGE SQ SCH (09:00)
--- NOTE | 2020-11-21 09:03 | Discharge Summary ---
Discharge Provider Provider Patient information: Note initiated : 11/21/20 at 8:57 am Service Date, if different from initiated Date: [] Patient: Lilo Arreola 54 y/o F admitted on 11/21/20 for lt hip pain 2 days. Chief Complaint: [] Date of admission: 11/21/20 01:45 Discharge date: 11/21/20 Primary care physician: JC Messina Consults: 11/21/20 Consult to Physician [CONS] Stat Comment: Consulting Provider: Darian Jane Reason For Exam: Physician to Consult Discharge Meds Discharge Medications Home Medications gabapentin 600 mg PO PRN PRN 06/23/20 [History Confirmed 11/21/20 Last Taken 19:00] lorazepam 11/20/20 [History Last Taken 11/20/20] COURSE Hospital Course Hospital course: Short while after admission, I was informed patient left AMA. I instructed RN to contact her family. Full treatment has not started yet. Discharge diagnosis: Respiratory failure, pneumonia Time Spent with Patient Time attestation: Total time spent providing and/or coordinating discharge services: EXAM Constitutional Vitals: Temp Pulse Resp BP Pulse Ox 100.6 F H 103 H 12 117/72 94 11/20/20 20:31 11/21/20 00:31 11/21/20 00:31 11/21/20 00:31 11/21/20 00:31 Discharge Data Data Completed and Pending Labs on day of discharge: Labs from last 24 hours 11/21/20 11/21/20 11/21/20 00:37 00:37 00:36 WBC RBC Hgb Hct MCV MCH MCHC RDW Plt Count MPV Neut % (Auto) Lymph % (Auto) [place] % (Auto) Eos % (Auto) Baso % (Auto) Lymph # (Auto) [place] # (Auto) Eos # (Auto) Baso # (Auto) Absolute Neutrophils PT INR D-Dimer VBG Lactic Acid Sodium Potassium Chloride Carbon Dioxide Anion Gap BUN Creatinine GFR Calculation Glucose Calcium Phosphorus 2.6 Magnesium 2.0 Total Bilirubin AST ALT Alkaline Phosphatase Troponin T < 0.01 C-Reactive Protein 11.60 H NT-Pro-B Natriuret Pep 197.2 H Total Protein Albumin Globulin Albumin/Globulin Ratio Lipase 25-OH Vitamin D Total 12.91 L Procalcitonin Urine Color Urine Appearance Urine pH Ur Specific [place] Urine Protein Urine Glucose (UA) Urine Ketones Urine Occult Blood Urine Nitrate Urine Bilirubin Urine Urobilinogen Ur Leukocyte Esterase Urine RBC Urine WBC Ur Squamous Epith Cells Urine Bacteria Urine Mucus Ur Culture Indicated? Urine Opiates Screen Ur Opiates Confirm Ur Oxycodone Screen Urine Methadone Screen Ur Methadone Confirm Ur Barbiturates Screen Ur Barbiturate Confirm Ur Phencyclidine Scrn Urine PCP Confirm Ur Amphetamines Screen U Amphetamines Confirm U Benzodiazepines Scrn U Benzodiazepine Confm Urine Cocaine Screen Urine Cocaine Confirm U Cannabinoids Confirm U Marijuana (THC) Screen 11/21/20 11/21/20 11/21/20 00:36 00:35 00:02 WBC RBC Hgb Hct MCV MCH MCHC RDW Plt Count MPV Neut % (Auto) Lymph % (Auto) [place] % (Auto) Eos % (Auto) Baso % (Auto) Lymph # (Auto) [place] # (Auto) Eos # (Auto) Baso # (Auto) Absolute Neutrophils PT 14.3 INR 1.1 D-Dimer VBG Lactic Acid 0.8 Sodium Potassium Chloride Carbon Dioxide Anion Gap BUN Creatinine GFR Calculation Glucose Calcium Phosphorus Magnesium Total Bilirubin AST ALT Alkaline Phosphatase Troponin T C-Reactive Protein NT-Pro-B Natriuret Pep Total Protein Albumin Globulin Albumin/Globulin Ratio Lipase 25-OH Vitamin D Total Procalcitonin Urine Color Urine Appearance Urine pH Ur Specific [place] Urine Protein Urine Glucose (UA) Urine Ketones Urine Occult Blood Urine Nitrate Urine Bilirubin Urine Urobilinogen Ur Leukocyte Esterase Urine RBC Urine WBC Ur Squamous Epith Cells Urine Bacteria Urine Mucus Ur Culture Indicated? Urine Opiates Screen Suspect positive A Ur Opiates Confirm Not Reportable Ur Oxycodone Screen None detected Urine Methadone Screen None detected Ur Methadone Confirm Not Reportable Ur Barbiturates Screen None detected Ur Barbiturate Confirm Not Reportable Ur Phencyclidine Scrn None detected Urine PCP Confirm Not Reportable Ur Amphetamines Screen Suspect positive A U Amphetamines Confirm Not Reportable U Benzodiazepines Scrn Suspect positive A U Benzodiazepine Confm Not Reportable Urine Cocaine Screen None detected Urine Cocaine Confirm Not Reportable U Cannabinoids Confirm Not Reportable U Marijuana (THC) Screen Suspect positive A 11/20/20 11/20/20 11/20/20 23:34 21:47 21:47 WBC RBC Hgb Hct MCV MCH MCHC RDW Plt Count MPV Neut % (Auto) Lymph % (Auto) [place] % (Auto) Eos % (Auto) Baso % (Auto) Lymph # (Auto) [place] # (Auto) Eos # (Auto) Baso # (Auto) Absolute Neutrophils PT INR D-Dimer VBG Lactic Acid Sodium Potassium Chloride Carbon Dioxide Anion Gap BUN Creatinine GFR Calculation Glucose Calcium Phosphorus Magnesium Total Bilirubin AST ALT Alkaline Phosphatase Troponin T < 0.01 C-Reactive Protein NT-Pro-B Natriuret Pep Total Protein Albumin Globulin Albumin/Globulin Ratio Lipase 25-OH Vitamin D Total Procalcitonin 0.22 H Urine Color Yellow Urine Appearance Cloudy A Urine pH 5.0 Ur Specific [place] 1.018 Urine Protein 30 A Urine Glucose (UA) Negative Urine Ketones Negative Urine Occult Blood 0.20 Urine Nitrate Pos A Urine Bilirubin Negative Urine Urobilinogen Negative Ur Leukocyte Esterase 250 A Urine RBC 2 Urine WBC > 182 H Ur Squamous Epith Cells 1 Urine Bacteria Mod A Urine Mucus Many A Ur Culture Indicated? yes Urine Opiates Screen Ur Opiates Confirm Ur Oxycodone Screen Urine Methadone Screen Ur Methadone Confirm Ur Barbiturates Screen Ur Barbiturate Confirm Ur Phencyclidine Scrn Urine PCP Confirm Ur Amphetamines Screen U Amphetamines Confirm U Benzodiazepines Scrn U Benzodiazepine Confm Urine Cocaine Screen Urine Cocaine Confirm U Cannabinoids Confirm U Marijuana (THC) Screen 11/20/20 11/20/20 11/20/20 21:47 21:47 21:47 WBC RBC Hgb Hct MCV MCH MCHC RDW Plt Count MPV Neut % (Auto) Lymph % (Auto) [place] % (Auto) Eos % (Auto) Baso % (Auto) Lymph # (Auto) [place] # (Auto) Eos # (Auto) Baso # (Auto) Absolute Neutrophils PT INR D-Dimer 0.43 VBG Lactic Acid 1.4 Sodium 130 L Potassium 3.9 Chloride 92 L Carbon Dioxide 28 Anion Gap 10.0 BUN 11 Creatinine 0.7 GFR Calculation 99 Glucose 151 H Calcium 9.2 Phosphorus Magnesium 2.2 Total Bilirubin 0.5 AST 19 ALT 14 Alkaline Phosphatase 124 H Troponin T C-Reactive Protein NT-Pro-B Natriuret Pep 169.7 H Total Protein 7.4 Albumin 3.7 Globulin 3.7 Albumin/Globulin Ratio 1.0 Lipase 13 25-OH Vitamin D Total Procalcitonin Urine Color Urine Appearance Urine pH Ur Specific [place] Urine Protein Urine Glucose (UA) Urine Ketones Urine Occult Blood Urine Nitrate Urine Bilirubin Urine Urobilinogen Ur Leukocyte Esterase Urine RBC Urine WBC Ur Squamous Epith Cells Urine Bacteria Urine Mucus Ur Culture Indicated? Urine Opiates Screen Ur Opiates Confirm Ur Oxycodone Screen Urine Methadone Screen Ur Methadone Confirm Ur Barbiturates Screen Ur Barbiturate Confirm Ur Phencyclidine Scrn Urine PCP Confirm Ur Amphetamines Screen U Amphetamines Confirm U Benzodiazepines Scrn U Benzodiazepine Confm Urine Cocaine Screen Urine Cocaine Confirm U Cannabinoids Confirm U Marijuana (THC) Screen 11/20/20 21:47 WBC 23.3 H RBC 4.51 Hgb 13.9 Hct 41.1 MCV 91.1 MCH 30.8 MCHC 33.8 RDW 13.9 Plt Count 188 MPV 8.9 Neut % (Auto) 87.1 H Lymph % (Auto) 8.8 L [place] % (Auto) 3.6 Eos % (Auto) 0.1 Baso % (Auto) 0.4 Lymph # (Auto) 2.04 [place] # (Auto) 0.83 Eos # (Auto) 0.03 Baso # (Auto) 0.09 Absolute Neutrophils 20.26 H PT INR D-Dimer VBG Lactic Acid Sodium Potassium Chloride Carbon Dioxide Anion Gap BUN Creatinine GFR Calculation Glucose Calcium Phosphorus Magnesium Total Bilirubin AST ALT Alkaline Phosphatase Troponin T C-Reactive Protein NT-Pro-B Natriuret Pep Total Protein Albumin Globulin Albumin/Globulin Ratio Lipase 25-OH Vitamin D Total Procalcitonin Urine Color Urine Appearance Urine pH Ur Specific [place] Urine Protein Urine Glucose (UA) Urine Ketones Urine Occult Blood Urine Nitrate Urine Bilirubin Urine Urobilinogen Ur Leukocyte Esterase Urine RBC Urine WBC Ur Squamous Epith Cells Urine Bacteria Urine Mucus Ur Culture Indicated? Urine Opiates Screen Ur Opiates Confirm Ur Oxycodone Screen Urine Methadone Screen Ur Methadone Confirm Ur Barbiturates Screen Ur Barbiturate Confirm Ur Phencyclidine Scrn Urine PCP Confirm Ur Amphetamines Screen U Amphetamines Confirm U Benzodiazepines Scrn U Benzodiazepine Confm Urine Cocaine Screen Urine Cocaine Confirm U Cannabinoids Confirm U Marijuana (THC) Screen Discharge Plan Patient/Caregiver Discharge Instructions Prescriptions: No Action gabapentin 600 mg tablet 600 mg PO PRN PRN (Reason: Pain) RF: 0 lorazepam 0.5 mg tablet RF: 0 Follow Up Plan Follow up with: Douglas Segura ARNP [Primary Care Provider] - Patient Disposition: Left Against Medical Advice Prognosis: Fair Discharge Date/Time: 11/21/20 02:10 Discharge Orders: Discharge Order (Routine); Ordered 11/21/20 Ordered By: Darian Jane Discharge Comment: left from ICU
== END 2020-11-21 02:10 | disposition left against medical advice (07) | DRG 871 ==
LOC: ED 20:30 → ICU 11-21 01:45
PROVIDERS: ADMIT Internal Medicine; ATTEND Internal Medicine